=== PATIENT | male | born 1980 | race Caucasian/White ===

== ENCOUNTER 2016-11-11 06:58 | Emergency (ER) | payer SELFPAY ==
--- NOTE | ~2016-11-11 | ER ---
PATIENT'S NAME: SOFIA SR [facility] AGE: 36 Y [address] ROOM: [place] [address] LOCATION: ED ADMIT DATE: 11/11/2016 ER/Outpatient Report DISCHARGE DATE: 11/11/2016 FAMILY PHYSICIAN: Physician, Unknown ATTENDING PHYSICIAN: Jose Angel Cooper CHIEF COMPLAINT: Palpitations and unsettled feeling. HISTORY OF PRESENT ILLNESS: The patient was driving along the [address] after having taken methamphetamine and cocaine within the last 12 to 24 hours. Most recent cocaine was reported 5 hours prior to the arrival. He stated that he was driving and began to feel very unusual with palpitations and an unsettled anxious feeling. It has been fluctuating since its onset. He was then concerned about a heart attack and thus called an ambulance. He was evaluated by the corporate relations manager's department, and they have no cause for further investigation at this time. The patient freely endorses the use of methamphetamine and cocaine. He is traveling from [place] to [place] for unclear reasons. He has a history of HIV and takes medication for the same. He denies any chest pain or heaviness or any shortness of breath. Only the palpitations and unsettled feeling. He has never had this with his drugs before. No other acute issues. He does have history of depression and takes 2 antidepressants. PAST MEDICAL HISTORY: Documented on the record and reviewed by me. SOCIAL HISTORY: Documented on the record and reviewed by me. MEDICATIONS: Documented on the record and reviewed by me. ALLERGIES: DOCUMENTED ON THE RECORD AND REVIEWED BY ME. REVIEW OF SYSTEMS: All systems were reviewed and negative except as noted in the HPI. PHYSICAL EXAMINATION: VITAL SIGNS: Blood pressure is 143/102, pulse 87, respiratory rate 16, temperature 98.2, and SpO2 is 97% on room air. Pain 0/10. GENERAL: An age-appropriate male, tired appearance, no obvious pain or distress. NEUROLOGIC: The patient is awake and alert. GCS is 15. No focal deficits. PATIENT'S NAME: SOFIA SR [facility] AGE: 36 Y [address] ROOM: [place] [address] LOCATION: [facility] ADMIT DATE: 11/11/2016 ER/Outpatient Report DISCHARGE DATE: 11/11/2016 FAMILY PHYSICIAN: Physician, Unknown ATTENDING PHYSICIAN: Jose Angel Cooper No asymmetry on exam. Gait is normal. Coordination is appropriate. Speech is clear. No tremulous motion. HEENT: Normocephalic, atraumatic. Eyes are PERRL. NECK: Supple. Trachea is midline. Oropharynx is clear. HEART: Regular rate and rhythm with no murmurs. LUNGS: Clear to auscultation bilaterally. No rhonchi, wheezes, or rales. ABDOMEN: Soft, nontender, and nondistended. No rebound or guarding. BACK: Back is normal to inspection and palpation. EXTREMITIES: Warm and well perfused with no deformities. SKIN: Clean, dry, and intact. LABORATORY DATA AND X-RAYS: No imaging was obtained for this individual. Labs: Salicylate is undetectable. Acetaminophen is undetectable. Troponin is below threshold. CMS without appreciable abnormality. Urine drug screen positive for amphetamines and cocaine. CBC without abnormality. UA remarkable. EKG, sinus rhythm, rate of 80 with normal intervals and axis. No signs of acute ischemia or dysrhythmia. No comparison available. IMPRESSION: Illicit drug use with untoward side effects. EMERGENCY DEPARTMENT COURSE: The patient seen and evaluated. No emergency medical condition exists at this time. No clinical intoxication. His symptoms are likely secondary to his drug use. He was given 2 to 2.5 hours of time in the emergency department to work out his symptoms and the patient was feeling much better. As he is still traveling, I recommend strongly that he not use any further drugs to ensure safety of others. The patient stated his understanding. I also recommended he take some time and have a nap as he has not slept since Monday night. He voiced understanding of that. This may be contributing to his current presentation. He needs to follow up as needed. MD LA DICKENS/lauri /[id number] d: 11/11/16 1406 t: 11/14/16 0711, OUTPATIENT REPORT
[2016-11-11 07:18] LABS: BILIRUBIN URINE NEGATIVE (NEGATIVE); BLOOD URINE NEGATIVE /UL (NEGATIVE); COLOR URINE STRAW (YELLOW); GLUCOSE URINE NEGATIVE (NEGATIVE); KETONE URINE NEGATIVE (NEGATIVE); LEUKOCYTES URINE NEGATIVE /UL (NEGATIVE); NITRITE URINE NEGATIVE (NEGATIVE); PROTEIN URINE NEGATIVE (NEGATIVE); TURBIDITY URINE CLEAR (CLEAR); UROBILINOGEN URINE NORMAL (NORMAL)
[2016-11-11 07:35] LABS: BASOPHIL % 0.5 %; EOSINOPHIL % 0.4 %; HEMATOCRIT 42.2 % (37.0-53.0); HEMOGLOBIN 14.8 g/dL (12.0-17.0); IMMATURE GRANULOCYTE % 0.4 %; LYMPHOCYTE # 1.5 K/uL (0.8-4.0); LYMPHOCYTE % 18.4 %; MCH 32.2 pg (27.0-34.0); MCHC 35.1 gm/dL (32.0-36.5); MCV 91.7 fl (83.0-98.0); MONOCYTE # 0.6 K/uL (0.0-1.0); MONOCYTE % 7.1 %; MPV 9.1 fl (9.4-12.4); NEUTROPHIL # (ANC) 5.9 K/uL (1.4-9.0); NEUTROPHIL % 73.2 %; NRBC % 0 /100WBC (0-0.00); PLATELET COUNT 285 K/uL (150-450); RDW-CV 12.3 % (11.9-14.6); WBC 8.1 K/uL (4.0-11.0)
[2016-11-11 07:37] LABS: BARBITURATE NEGATIVE (NEGATIVE); OPIATES NEGATIVE (NEGATIVE)
[2016-11-11 07:39] LABS: AMPHETAMINE POSITIVE (NEGATIVE); COCAINE POSITIVE (NEGATIVE)
[2016-11-11 07:51] LABS: ALBUMIN 4.3 gm/dL (3.5-5.0); ALK PHOS 45 IU/L (33-138); ALT 29 IU/L (12-78); ANION GAP 8.8 (10.0-19.0); AST 20 IU/L (10-40); BLOOD UREA NITROGEN 12 mg/dL (6-24); CALCIUM 9.2 mg/dL (8.5-10.5); CHLORIDE 107 mMol/L (96-110); CO2 30 mMol/L (22-32); CREATININE 1.2 mg/dL (0.6-1.3); ESTIMATED GFR (MDRD EQUATION) > 60; POTASSIUM 3.8 mMol/L (3.7-5.1); SODIUM 142 mMol/L (135-145); TOTAL BILIRUBIN 0.3 mg/dL (0.0-1.5); TOTAL PROTEIN 8.1 g/dL (6.0-8.4)
== END 2016-11-11 08:18 | disposition disaster alternative care site (69) ==
LOC: GMED 06:58
PROVIDERS: Emergency Medicine
DX: R00.2 Palpitations (principal); T40.5X5A Adverse effect of cocaine, initial encounter; T43.625A Adverse effect of amphetamines, initial encounter; F32.9 Major depressive disorder, single episode, unspecified; Z21 Asymptomatic human immunodeficiency virus [HIV] infection status; Z88.2 Allergy status to sulfonamides; Z79.899 Other long term (current) drug therapy; Y92.411 Interstate highway as the place of occurrence of the external cause
CPT/HCPCS: G0480